=== PATIENT | male | born 1975 | race African-American/Black ===

== ENCOUNTER 2019-12-17 19:14 | Emergency (ER) | payer MEDICAID ==
[~2019-12-17] VITALS: Ht 170.2 cm; Wt 88.0 kg
[~2019-12-17 19:14] MED LIST: GLIP5TAB12 PO; LIP40 PO; LISI-604 PO; METF-416 PO
[2019-12-17] MEDS ORDERED: GABA-290 PO (19:16)
[2019-12-17] MEDS ORDERED: HYDR25TA PO (19:17)
[2019-12-17] MEDS ORDERED: ATOR10TA PO (19:17)
[2019-12-17] MEDS ORDERED: CLOP75TA4 PO (19:17)
[2019-12-17] MEDS ORDERED: SODIUM CHLORIDE 0.9% 1,000 ML IV ONE ×2 (19:57→22:15)
[2019-12-17 20:59] LABS: BASOPHILS % 0.4 % (0.0-2.0); EOSINOPHILS % 0.4 % (0.0-5.0); HEMATOCRIT. 46.4 % (42.0-52.0); HEMOGLOBIN. 15.4 g/dL (14.0-18.0); LYMPHOCYTES % 15.8 % (20.0-50.0); MEAN CORPUSCULAR HEMOGLOBIN 28.2 pg (28.0-32.0); MEAN CORPUSCULAR VOLUME 85.3 fL (80.0-94.0); MEAN PLATELET VOLUME 9.1 fl (7.4-10.4); MONOCYTES % 7.2 % (2.0-8.0); NEUTROPHILS % 76.2 % (40.0-76.0); PLATELET 302 x1000/uL (130-400); RED BLOOD CELL COUNT 5.44 mill/uL (4.7-6.1); RED CELL DISTRIBUTION WIDTH 13.9 % (11.6-14.6)
[2019-12-17 21:01] LABS: CLARITY URINE CLEAR (CLEAR); COLOR URINE YELLOW (YELLOW); KETONES URINE NEGATIVE (NEGATIVE); LEUKOCYTE ESTERASE URINE NEGATIVE (NEGATIVE); NITRITE URINE NEGATIVE (NEGATIVE); OCCULT BLOOD URINE NEGATIVE (NEGATIVE); PROTEIN URINE NEGATIVE (NEGATIVE); SPECIFIC GRAVITY URINE 1.021 (1.005-1.030); UROBILINOGEN URINE 0.2 E.U./dL (0.2-1.0)
[2019-12-17 21:06] LABS: CHLORIDE 95 mEq/L (98-107)
[2019-12-17 21:10] LABS: ETHANOL BLOOD < 10 mg/dL
[2019-12-17 21:12] LABS: BETA HYDROXYBUTYRATE 0.1 mMol/L (0.0-0.3)
[2019-12-17 21:13] LABS: *AMPHETAMINES SCREEN URINE NEGATIVE (NEGATIVE); *BARBITURATES SCREEN URINE NEGATIVE (NEGATIVE); *BENZODIAZEPINES SCREEN URINE NEGATIVE (NEGATIVE); *COCAINE SCREEN URINE NEGATIVE (NEGATIVE); METHADONE URINE SCREEN NEGATIVE (NEGATIVE)
[2019-12-17 21:14] LABS: CANNABINOID URINE SCREEN NEGATIVE (NEGATIVE); OPIATES URINE SCREEN NEGATIVE (NEGATIVE); PHENCYCLIDINE URINE SCREEN NEGATIVE (NEGATIVE)
[2019-12-17] MEDS ORDERED: INSULIN REGULAR (HUMULIN R) 300UNITS/3ML SUBCUT ONE (23:00)
[2019-12-17 23:49] VITALS: BP 166/106
== END 2019-12-17 23:55 | disposition home or self-care (01) ==
LOC: ER 19:14 → CANBEDREQ 12-18 07:39
DX: E11.65 Type 2 diabetes mellitus with hyperglycemia (principal); J45.909 Unspecified asthma, uncomplicated; E78.00 Pure hypercholesterolemia, unspecified; I10 Essential (primary) hypertension; Z79.899 Other long term (current) drug therapy
CPT/HCPCS: 36415; 71045; 80053; 80305; 80320; 81003; 82010; 82962; 83880; 84484; 85025; 93005; 96360; 96361; 96372; 99285; J1815; J7030; G0480

== ENCOUNTER 2020-02-26 23:31 | Inpatient (IN) | payer MEDICAID ==
[~2020-02-26] VITALS: Ht 180.3 cm; Wt 93.0 kg
[~2020-02-26 23:31] MED LIST changes: +ATOR10TA PO; +CLOP75TA4 PO; +GABA-290 PO; +HYDR25TA PO
[2020-02-27] MEDS ORDERED: SODIUM CHLORIDE 0.9% 1,000 ML IV ONE (00:30)
[2020-02-27 00:35] LABS: BASOPHILS % 0.7 % (0.0-2.0); EOSINOPHILS % 0.7 % (0.0-5.0); HEMATOCRIT. 41.1 % (42.0-52.0); HEMOGLOBIN. 13.6 g/dL (14.0-18.0); LYMPHOCYTES % 23.7 % (20.0-50.0); MEAN CORPUSCULAR HEMOGLOBIN 28.3 pg (28.0-32.0); MEAN CORPUSCULAR VOLUME 85.7 fL (80.0-94.0); MEAN PLATELET VOLUME 9.2 fl (7.4-10.4); MONOCYTES % 5.6 % (2.0-8.0); NEUTROPHILS % 69.3 % (40.0-76.0); PLATELET 266 x1000/uL (130-400); RED CELL DISTRIBUTION WIDTH 14.5 % (11.6-14.6)
[2020-02-27 00:39] LABS: CHLORIDE 93 mEq/L (98-107)
[2020-02-27 00:40] LABS: CLARITY URINE CLEAR (CLEAR); COLOR URINE YELLOW (YELLOW); KETONES URINE TRACE (NEGATIVE); LEUKOCYTE ESTERASE URINE NEGATIVE (NEGATIVE); NITRITE URINE NEGATIVE (NEGATIVE); OCCULT BLOOD URINE NEGATIVE (NEGATIVE); PROTEIN URINE TRACE (NEGATIVE); SPECIFIC GRAVITY URINE 1.018 (1.005-1.030)
[2020-02-27] MEDS ORDERED: ACETAMINOPHEN 325MG TABLET PO ONE (04:00)
[2020-02-27] MEDS ORDERED: IPRATROPIUM/ALBUTEROL 0.5-3(2.5)MG/3ML NEB HHN PRN (11:15)
[2020-02-27] MEDS ORDERED: CLONIDINE 0.1MG TABLET PO PRN (11:15)
[2020-02-27] MEDS ORDERED: HYDROCODONE/ACETAMINOPHEN 5/325MG TABLET PO PRN (11:15)
[2020-02-27] MEDS ORDERED: ONDANSETRON HCL 4MG/2ML INJ IV PRN (11:15)
[2020-02-27] MEDS ORDERED: DOCUSATE SODIUM 100MG CAPSULE PO PRN (11:15)
[2020-02-27] MEDS ORDERED: DEXTROSE 50% WATER 50ML SYRINGE IV PRN ×3 (11:15→13:15)
[2020-02-27] MEDS ORDERED: MAGNESIUM/ALUMINUM HYDROXIDE/SIMETHICONE 30ML UDC PO PRN (11:15)
[2020-02-27] MEDS ORDERED: ACETAMINOPHEN 325MG TABLET PO PRN (11:15)
[2020-02-27] MEDS: PANTOPRAZOLE SODIUM 40 MG/VIAL IV SCH (11:41)
[2020-02-27] MEDS: ENOXAPARIN 40MG/0.4ML SYR SUBCUT SCH (11:42)
[2020-02-27] MEDS ORDERED: BLOOD SUGAR DIAGNOSTIC STRIP TEST SCH (13:00)
[2020-02-27] MEDS: INSULIN LISPRO 100 UNITS/ML SUBCUT SCH ×3 (13:14→21:41)
[2020-02-27 13:35] VITALS: BP 133/68
[2020-02-27] MEDS ORDERED: FURO40TA5 PO (15:39)
[2020-02-27] MEDS ORDERED: INSU100I32 SQ (15:39)
[2020-02-27] MEDS ORDERED: METO-539 PO (15:39)
[2020-02-27] MEDS ORDERED: INSU100I24 SQ (15:39)
[2020-02-27] MEDS ORDERED: ASPI-1497 PO (15:39)
[2020-02-27] MEDS ORDERED: AMLO5TAB88 PO (15:39)
[2020-02-27] MEDS ORDERED: SITA100T11 PO (15:39)
[2020-02-27] MEDS ORDERED: GABA-531 PO (15:39)
[2020-02-27 16:00] VITALS: BP 137/96
[2020-02-27 16:17] VITALS: BP 135/93
[2020-02-27 16:58] LABS: CREATINE KINASE 109 IU/L (39-308)
[2020-02-27] MEDS: BLOOD SUGAR DIAGNOSTIC STRIP TEST SCH ×2 (17:39→21:38)
[2020-02-27 20:11] VITALS: BP 110/86
[2020-02-27] MEDS: SODIUM CHLORIDE 0.9% 1,000 ML IV SCH (20:30)
[2020-02-28 00:38] VITALS: BP 125/91
[2020-02-28 02:31] LABS: *AMPHETAMINES SCREEN URINE NEGATIVE (NEGATIVE); *BARBITURATES SCREEN URINE NEGATIVE (NEGATIVE); *BENZODIAZEPINES SCREEN URINE NEGATIVE (NEGATIVE); *COCAINE SCREEN URINE NEGATIVE (NEGATIVE); METHADONE URINE SCREEN NEGATIVE (NEGATIVE)
[2020-02-28 02:32] LABS: CANNABINOID URINE SCREEN NEGATIVE (NEGATIVE); OPIATES URINE SCREEN NEGATIVE (NEGATIVE); PHENCYCLIDINE URINE SCREEN NEGATIVE (NEGATIVE)
[2020-02-28 04:11] VITALS: BP 124/90
[2020-02-28] MEDS: BLOOD SUGAR DIAGNOSTIC STRIP TEST SCH ×2 (06:31→13:02)
[2020-02-28 07:12] LABS: BASOPHILS % 1.2 % (0.0-2.0); EOSINOPHILS % 0.7 % (0.0-5.0); HEMATOCRIT. 41.2 % (42.0-52.0); HEMOGLOBIN. 13.7 g/dL (14.0-18.0); LYMPHOCYTES % 20.2 % (20.0-50.0); MEAN CORPUSCULAR HEMOGLOBIN 28.3 pg (28.0-32.0); MEAN CORPUSCULAR VOLUME 84.8 fL (80.0-94.0); MEAN PLATELET VOLUME 8.9 fl (7.4-10.4); NEUTROPHILS % 71.9 % (40.0-76.0); PLATELET 275 x1000/uL (130-400); RED BLOOD CELL COUNT 4.85 mill/uL (4.7-6.1); RED CELL DISTRIBUTION WIDTH 14.2 % (11.6-14.6)
[2020-02-28 08:00] VITALS: BP 143/101
[2020-02-28] MEDS ORDERED: PNEUMOCOCCAL 23-VAL P-SAC VAC 0.5 ML IM ONE (08:00)
[2020-02-28 08:13] LABS: CHLORIDE 100 mEq/L (98-107)
[2020-02-28] MEDS: PANTOPRAZOLE SODIUM 40 MG/VIAL IV SCH (08:26)
[2020-02-28] MEDS: ENOXAPARIN 40MG/0.4ML SYR SUBCUT SCH (08:26)
[2020-02-28] MEDS: SODIUM CHLORIDE 0.9% 1,000 ML IV SCH (08:29)
[2020-02-28] MEDS: INSULIN LISPRO 100 UNITS/ML SUBCUT SCH ×2 (08:34→13:02)
[2020-02-28 11:53] VITALS: BP 136/101
[2020-02-28] MEDS ORDERED: LISINOPRIL 20MG TABLET PO SCH (12:15)
[2020-02-28] MEDS ORDERED: AMLODIPINE 5MG TABLET PO SCH (13:00)
[2020-02-28] MEDS ORDERED: ASPIRIN 81MG EC TABLET PO SCH (13:00)
[2020-02-28] MEDS ORDERED: CLOPIDOGREL 75MG TABLET PO SCH (13:00)
[2020-02-28] MEDS ORDERED: METOPROLOL TARTRATE 50MG TABLET PO SCH (13:00)
[2020-02-28] MEDS ORDERED: HYDROCHLOROTHIAZIDE 25MG TABLET PO SCH (13:00)
[2020-02-28] MEDS ORDERED: FUROSEMIDE 40MG TABLET PO SCH (13:00)
[2020-02-28] MEDS ORDERED: GABAPENTIN 300MG CAPSULE PO SCH (14:00)
[2020-02-28] MEDS ORDERED: HYDR25TA PO (15:35)
[2020-02-28] MEDS ORDERED: FURO40TA5 PO (15:35)
[2020-02-28] MEDS ORDERED: METO-539 PO (15:35)
[2020-02-28] MEDS ORDERED: CLOP75TA4 PO (15:35)
[2020-02-28] MEDS ORDERED: LIP40 PO (15:35)
[2020-02-28] MEDS ORDERED: LISI-604 PO (15:35)
[2020-02-28] MEDS ORDERED: GABA-531 PO (15:35)
[2020-02-28] MEDS ORDERED: AMLO5TAB88 PO (15:35)
[2020-02-28] MEDS ORDERED: ASPI-1497 PO (15:35)
[2020-02-28] MEDS ORDERED: INSU100I24 SQ (15:35)
[2020-02-28] MEDS ORDERED: INSU100I32 SQ (15:35)
[2020-02-28 16:00] VITALS: BP 123/64
[2020-02-28 16:56] VITALS: BP 130/88
[2020-02-28] MEDS ORDERED: GLIPIZIDE 5MG TABLET PO SCH (17:00)
[2020-02-28] MEDS ORDERED: ATORVASTATIN CALCIUM 40MG TABLET PO SCH ×2 (17:00)
[2020-02-28] MEDS ORDERED: METFORMIN HCL 500MG TABLET PO SCH (17:50)
[2020-02-29] MEDS ORDERED: METOLAZONE 5MG TABLET PO SCH (09:00)
[2020-02-29] MEDS ORDERED: LISINOPRIL 20MG TABLET PO SCH (09:00)
[2020-02-29 19:06] LABS: ANTI-NUCLEAR ANTIBODIES DIRECT Negative (Negative)
== END 2020-02-28 18:32 | disposition home or self-care (01) | DRG 48 ==
LOC: ER 23:46 → 6WST 02-27 03:50 → ENRESERV 02-27 12:42
PROVIDERS: ADMIT Internal Medicine; ATTEND Internal Medicine
DX: E11.43 Type 2 diabetes mellitus with diabetic autonomic (poly)neuropathy (principal); N17.9 Acute kidney failure, unspecified; K31.84 Gastroparesis; E11.65 Type 2 diabetes mellitus with hyperglycemia; E78.5 Hyperlipidemia, unspecified; I42.9 Cardiomyopathy, unspecified; E86.9 Volume depletion, unspecified; I12.9 Hypertensive chronic kidney disease with stage 1 through stage 4 chronic kidney disease, or unspecified chronic kidney disease; E11.22 Type 2 diabetes mellitus with diabetic chronic kidney disease; N18.9 Chronic kidney disease, unspecified; E11.51 Type 2 diabetes mellitus with diabetic peripheral angiopathy without gangrene; I25.2 Old myocardial infarction; Z91.19 Patient's noncompliance with other medical treatment and regimen; Z79.82 Long term (current) use of aspirin; Z79.4 Long term (current) use of insulin; Z79.84 Long term (current) use of oral hypoglycemic drugs; Z79.899 Other long term (current) drug therapy; Z95.810 Presence of automatic (implantable) cardiac defibrillator
CPT/HCPCS: 36415; 71045; 76770; 80048; 80053; 80305; 81003; 82010; 82550; 82962; 83036; 83880; 84443; 84484; 85025; 86038; 86160; 90732; 93005; 93970; 97161; 97165; 99285; C9113; J1650; J1815; J7030

== ENCOUNTER 2022-10-22 11:52 | Inpatient (IN) | payer MEDICAID ==
[~2022-10-22] VITALS: Ht 180.3 cm; Wt 88.5 kg
[~2022-10-22 11:52] MED LIST changes: +AMLO5TAB88 PO; +ASPI-1497 PO; -ATOR10TA PO; +CLOP-31 PO; -CLOP75TA4 PO; +FURO40TA5 PO; -GABA-290 PO; +GABA-532 PO; -GLIP5TAB12 PO; +INSU100I24 SQ; +INSU100I32 SQ; -LISI-604 PO; +LISI20TA31 PO; -METF-416 PO; +METO-539 PO
[2022-10-22] MEDS ORDERED: ACETAMINOPHEN 325MG TABLET PO STA (16:36)
[2022-10-22 17:05] LABS: BASOPHILS % 0.3 % (0.0-2.0); EOSINOPHILS % 0.2 % (0.0-5.0); HEMATOCRIT. 40.9 % (42.0-52.0); HEMOGLOBIN. 13.4 g/dL (14.0-18.0); LYMPHOCYTES % 15.5 % (20.0-50.0); MEAN CORPUSCULAR HEMOGLOBIN 28.4 pg (28.0-32.0); MEAN CORPUSCULAR VOLUME 86.4 fL (80.0-94.0); MEAN PLATELET VOLUME 9.3 fl (7.4-10.4); MONOCYTES % 5.7 % (2.0-8.0); NEUTROPHILS % 78.3 % (40.0-76.0); PLATELET 299 x1000/uL (130-400); RED BLOOD CELL COUNT 4.73 mill/uL (4.7-6.1); RED CELL DISTRIBUTION WIDTH 13.9 % (11.6-14.6)
[2022-10-22 17:12] LABS: CHLORIDE 98 mEq/L (98-107)
[2022-10-22 17:19] LABS: BETA HYDROXYBUTYRATE 0.1 mMol/L (0.0-0.3); ETHANOL BLOOD < 10 mg/dL
[2022-10-22] MEDS ORDERED: KETOROLAC 60MG/2ML VIAL IM STA (17:25)
[2022-10-22] MEDS ORDERED: METOCLOPRAMIDE HCL 10MG/2ML VIAL IM ONE (17:30)
[2022-10-22] MEDS ORDERED: SODIUM CHLORIDE 0.9% 1,000 ML IV ONE (18:15)
[2022-10-22] MEDS ORDERED: ASPIRIN 325MG EC TABLET PO ONE (18:15)
[2022-10-22] MEDS ORDERED: ASPIRIN 325MG EC TABLET PO NR (20:00)
[2022-10-22] MEDS: POTASSIUM CHLORIDE 10MEQ TABLET SR PO SCH (20:02)
[2022-10-22 21:22] LABS: CLARITY URINE CLEAR (CLEAR); COLOR URINE YELLOW (YELLOW); KETONES URINE NEGATIVE (NEGATIVE); LEUKOCYTE ESTERASE URINE NEGATIVE (NEGATIVE); NITRITE URINE NEGATIVE (NEGATIVE); OCCULT BLOOD URINE TRACE (NEGATIVE); PH URINE 5.5 (4.5-8.0); PROTEIN URINE TRACE (NEGATIVE); SPECIFIC GRAVITY URINE 1.033 (1.005-1.030)
[2022-10-22 23:05] VITALS: BP 128/85
[2022-10-23 00:31] VITALS: BP 128/85
[2022-10-23] MEDS ORDERED: METO5TAB7 PO (02:06)
[2022-10-23] MEDS ORDERED: APIX5TAB PO (02:06)
[2022-10-23] MEDS ORDERED: METF-874 PO (02:06)
[2022-10-23] MEDS ORDERED: CHOL400D7 PO (02:06)
[2022-10-23 04:00] VITALS: BP 121/71
[2022-10-23] MEDS ORDERED: DEXTROSE 50% WATER 50ML SYRINGE IV PRN (04:00)
[2022-10-23] MEDS: BLOOD SUGAR DIAGNOSTIC STRIP TEST SCH ×4 (07:30→21:31)
[2022-10-23] MEDS: INSULIN LISPRO 100 UNITS/ML SUBCUT SCH ×4 (07:53→21:31)
[2022-10-23 08:00] VITALS: BP 136/89
[2022-10-23] MEDS ORDERED: ENOXAPARIN 40MG/0.4ML SYR SUBCUT SCH (10:00)
[2022-10-23] MEDS: ASPIRIN 81MG TABLET PO SCH (10:04)
[2022-10-23] MEDS: ENOXAPARIN 40MG/0.4ML SYR SUBCUT SCH (11:03)
[2022-10-23 12:00] VITALS: BP 141/95
[2022-10-23 16:00] VITALS: BP 133/89
[2022-10-23] MEDS: POTASSIUM CHLORIDE 10MEQ TABLET SR PO SCH (17:07)
[2022-10-23 20:05] VITALS: BP 133/89
[2022-10-23] MEDS: INSULIN GLARGINE 100 UNITS/ML SUBCUT SCH (21:30)
[2022-10-23] MEDS ORDERED: ACETAMINOPHEN 325MG TABLET PO PRN (22:45)
[2022-10-24] VITALS: BP 134/82
[2022-10-24 04:05] VITALS: BP 142/98
[2022-10-24 08:00] VITALS: BP 151/100
[2022-10-24] MEDS: INSULIN LISPRO 100 UNITS/ML SUBCUT SCH (08:10)
[2022-10-24] MEDS: BLOOD SUGAR DIAGNOSTIC STRIP TEST SCH (08:20)
[2022-10-24] MEDS: ENOXAPARIN 40MG/0.4ML SYR SUBCUT SCH (09:42)
[2022-10-24] MEDS: ASPIRIN 81MG TABLET PO SCH (09:43)
[2022-10-24] MEDS: INSULIN GLARGINE 100 UNITS/ML SUBCUT SCH (09:43)
[2022-10-24] MEDS ORDERED: IOHEXOL-350 100 ML BOTTLE ONE (10:45)
[2022-10-24] MEDS ORDERED: DONE-53 MT (10:58)
[2022-10-24] MEDS ORDERED: APIX5TAB MT (10:59)
[2022-10-24] MEDS ORDERED: POLY250017 MT (11:01)
[2022-10-24] MEDS ORDERED: BACI28.32 TP (11:01)
[2022-10-24] MEDS ORDERED: POTA8CAP20 MT (11:03)
[2022-10-24] MEDS ORDERED: RIVA20TA MT (11:04)
[2022-10-24] MEDS ORDERED: MIRT-89 MT (11:05)
[2022-10-24] MEDS ORDERED: DIVA-75 MT (11:06)
[2022-10-24] MEDS ORDERED: LURA120T MT (11:06)
[2022-10-24] MEDS ORDERED: BENZ2TAB7 MT (11:07)
[2022-10-24] MEDS ORDERED: LORA2ORA5 PO (11:08)
[2022-10-24] MEDS ORDERED: CHLO50TA MT (11:11)
[2022-10-24] MEDS ORDERED: FLUO40CA49 MT (11:11)
[2022-10-24] MEDS ORDERED: LORA10TA7 MT (11:12)
[2022-10-24] MEDS ORDERED: CLOP75TA33 MT (11:13)
[2022-10-24 14:31] VITALS: BP 129/84
== END 2022-10-24 15:40 | disposition home or self-care (01) | DRG 48 ==
LOC: ER 12:13 → 7WST 21:59
PROVIDERS: ADMIT Internal Medicine; ATTEND Internal Medicine
DX: G90.8 Other disorders of autonomic nervous system (principal); I49.5 Sick sinus syndrome; E78.5 Hyperlipidemia, unspecified; D72.829 Elevated white blood cell count, unspecified; D64.9 Anemia, unspecified; E11.9 Type 2 diabetes mellitus without complications; Z20.822 Contact with and (suspected) exposure to COVID-19; E87.5 Hyperkalemia; I10 Essential (primary) hypertension; E87.6 Hypokalemia; Z95.0 Presence of cardiac pacemaker
CPT/HCPCS: 36415; 70496; 70498; 71045; 80053; 80320; 81003; 82010; 82962; 84484; 85025; 93005; 93306; 97162; 97165; 99285; J1650; J1815; J1885; J2765; J7030; Q9967; G0480